=== PATIENT | female | born 1965 | race Caucasian/White ===

== ENCOUNTER 2018-09-08 06:16 | Day surgery (SDC) | payer OTHER ==
[~2018-09-08] VITALS: Ht 152.4 cm; Wt 70.3 kg
[2018-09-08 07:15] VITALS: Ht 152.4 cm; Wt 70.3 kg
[2018-09-08 07:19] VITALS: BP 149/70; PULSE 55; RESP 16
--- NOTE | 2018-09-08 07:33 | PREAC ---
Date/Time of Note Date/Time of Note DATE: 09/08/18 TIME: 07:31 Anesthesia Eval and Record Evaluation Time Pre-Procedure Interview DATE: 09/08/18 TIME: : Age 52 Sex female NPO: 8 hrs Preoperative diagnosis GERD, other fecal abnormalities Planned procedure EGD, colonoscopy Past Medical History Past Medical History: Includes Cardio: HTN Endo: Diabetes GI: GERD, Obesity Surgery & Anesthesia Issues No known issue Meds Anticoagulation: No Beta Brian within 24 hr: No Reason Beta Brian not given: Pt. not on B-Brian Meds reviewed: Yes Allergies Allergies Reviewed: Yes Labs/Studies Labs Reviewed: Reviewed by anesthesiologist test: N/A Pre-procedure Exam Airway: Adequate mouth opening, Adequate thyromental dist Mallampati: Mallampati II Teeth: Normal Lung: Normal Heart: Normal ASA Physical Status ASA physical status: 2 Emergency: None Planned Anesthetic General/MAC: Mask Planned Pain Management Parenteral pain med Pre-operative Attestations Prior to commencing anesthesia and surgery, the patient was re-evaluated, there was verification of: *The patient's identity *The results of appropriate recent lab work and preoperative vital signs *The above evaluation not changing prior to induction *Anesthetic plan, risk benefits, alternative and complications discussed with patient/family; questions answered; patient/family understands, accepts and wishes to proceed. [employer] used MINDI AGEE MD Sep 08, 2018 07:33
[2018-09-08] MEDS ORDERED: HTN MEDICATION (07:47)
[2018-09-08] MEDS ORDERED: metformin (07:47)
[2018-09-08] MEDS ORDERED: insulin (07:47)
[2018-09-08] MEDS ORDERED: PROPOFOL 60 ML ONE (07:52)
[2018-09-08] MEDS ORDERED: LIDOCAINE 2% (SDV) 5 ML INJ ONE (07:52)
--- NOTE | 2018-09-08 08:45 | PAC ---
Date/Time of Note Date/Time of Note DATE: 09/08/18 TIME: 08:44 Post-Anesthesia Notes Post-Anesthesia Note Activity: WNL Respiratory function: WNL Cardiovascular function: WNL Mental status: Baseline Pain reasonably controlled: Yes Hydration appropriate: Yes Nausea/Vomiting absent: Yes Comments BP: 104/61 HR: 72 RR: 15 T: 98 SaO2: 98% MINDI AGEE MD Sep 08, 2018 08:45
[2018-09-08] MEDS ORDERED: PROPOFOL 20 ML ONE (08:48)
[2018-09-08] MEDS ORDERED: ONDANSETRON 4 MG INJ IV PRN (09:00)
[2018-09-08 09:03] VITALS: BP 129/72; PULSE 57; RESP 23
== END 2018-09-08 11:52 | disposition home or self-care (01) ==
LOC: GIL 06:16
PROVIDERS: ATTEND Internal Medicine Gastroenterology
DX: R19.5 Other fecal abnormalities (principal); K29.30 Chronic superficial gastritis without bleeding; K64.8 Other hemorrhoids; D12.4 Benign neoplasm of descending colon; K20.8 Other esophagitis; I10 Essential (primary) hypertension; E11.9 Type 2 diabetes mellitus without complications
CPT/HCPCS: 43239; 45380; 82962; 88305; 88312; 88313; Z7610